=== PATIENT | female | born 1950 | race American Indian/Alaskan Native ===

== ENCOUNTER → 2017-01-08 | Outpatient (CLI) | payer OTHER, BC ==
--- NOTE | 2017-01-08 13:49 | DI ---
XR T-SPINE 3VW,01/08/2017 10:35 AM: Clinical History: Acute thoracic back pain. Previous Exam: None at this facility. Findings: 3 views of the thoracic spine are obtained, and demonstrate anatomic alignment without fractures. Rivera tebral body height is preserved. Intervertebral disc height is also preserved. The lungs are clear. Cardiomediastinum is unremarkable. Impression: Normal thoracic spine.
== END ==
LOC: MOB LAB 10:11
PROVIDERS: ATTEND Physician Assistant Medical
DX: N30.01 Acute cystitis with hematuria (principal); M54.2 Cervicalgia; M54.6 Pain in thoracic spine; R82.99 Other abnormal findings in urine
CPT/HCPCS: 72072; 87077; 87088; 87186

== ENCOUNTER → 2017-01-17 | Outpatient (CLI) | payer OTHER, BC ==
[2017-01-17 12:13] LABS: BASOPHILS # (AUTO) 0.04 10*3/UL; BASOPHILS % (AUTO) 0.3 % (0-1); EOSINOPHILS # (AUTO) 0.03 10*3/UL; EOSINOPHILS % (AUTO) 0.2 % (0-8); HEMATOCRIT 35.9 % (37.0-47.0); HEMOGLOBIN 11.7 g/dL (12.0-16.0); LYMPHOCYTES # (AUTO) 2.43 10*3/uL; MEAN CORPUSCULAR HGB CONC 32.6 g/dL (33-37); MEAN CORPUSCULAR VOLUME 88.9 FL (81-99); MEAN PLATELET VOLUME 8.1 FL (7.4-12.2); MONOCYTES # (AUTO) 0.97 10*3/UL (0.3-0.8); MONOCYTES % (AUTO) 7.6 % (5-15); NEUTROPHILS # (AUTO) 9.29 10*3/UL; NEUTROPHILS % (AUTO) 72.7 % (50-80); RED BLOOD COUNT 4.04 10^6/uL (4.20-5.40)
[2017-01-17 12:18] LABS: PLATELET MORPHOLOGY COMMENT NORMAL MORPHOLOGY (NORM); RBC MORPHOLOGY COMMENT NORMAL MORPHOLOGY (NORM); WBC MORPHOLOGY COMMENT NORMAL MORPHOLOGY (NORM)
[2017-01-17 12:20] LABS: BLOOD UREA NITROGEN 12 mg/dL (7-22); CALCIUM 9.6 mg/dL (8.7-10.7); EST GLOMERULAR FILTRATION > 60 (>60 ml/min/1.73m(2))
[2017-01-17 12:53] LABS: BILIRUBIN,URINE NEGATIVE (NEG); COLOR,URINE YELLOW; GLUCOSE, URINE (UA) NEGATIVE (NEG); NITRATE,URINE NEGATIVE (NEG); OCCULT BLOOD,URINE SMALL (NEG); PROTEIN,URINE TRACE mg/dl (NEG); UROBILINOGEN,URINE 0.2 mg/dL (0.2)
--- NOTE | 2017-01-17 13:10 | DI ---
US SOFT TISSUE HEAD/NECK,01/17/2017 12:01 PM: Clinical History: Right sided neck mass Previous Exam: None at this facility. Findings: Multiple grayscale and color Doppler sonographic images are obtained through the thyroid. The thyroid is diffusely heterogeneous. The right lobe of the thyroid is enlarged without a definitive mass. The right thyroid lobe in its entirety measured 4.8 x 2.3 x 2.6 cm. The left thyroid lobe measured 3.6 x 1.5 x 1.7 cm. There are no cystic masses. The thyroid isthmus me asured 4 mm. There are multiple lymph nodes identified which are nonpathologic by size criteria. Impression: Large thyroid mass involving the right lobe of the thyroid with diffuse heterogeneity. Recommend thyr oid biopsy for further evaluation.
[2017-01-17 13:42] LABS: CLARITY,URINE CLEAR (CLEAR)
[2017-01-17 13:44] LABS: SQUAMOUS EPITHELIAL CELL,UR RARE; URINE CASTS RARE; URINE SAMPLE TYPE CLEAN CATCH URINE; WBC,URINE 0-3
--- NOTE | 2017-01-17 14:06 | DI ---
CT SOFT TISSUE NECK W/LUIZ MIO,01/17/2017 12:01 PM: Clinical History: Painful mass within the right neck. Previous Exam: None at this facility. Findings: Multiple helically acquired CT images are obtained through the neck following intravenous demonstrati on of iodinated contrast. The palpable marker lies over the right thyroid gland. The right thyroid lobe is enlarged and heterog eneous. Physical examination revealed tenderness to palpation over this area. The thyroid gland measu res 4.0 x 2.5 cm. There are a few lymph nodes, but none of these are pathologic by size criteria. The parapharyngeal fa t is normal and symmetric. Skeletal structures are unremarkable except for some degenerative changes of the posterior articulati ng facets and the uncovertebral joints. There is postsurgical changes consistent with removal of the left submandibular gland. Visualized portions of the [place], vertebral arteries and carotid arteries are unremarkable . Other prevertebral soft tissues are unremarkable. Impression: 1. Enlarged and slightly heterogeneous right thyroid lobe without a definite mass nor cyst. 2. Mild degenerative changes of cervical spine. 3. Status post removal of a left submandibular gland.
[2017-01-17 18:24] LABS: FREE T4 (FREE THYROXINE) 5.48 ng/dL (0.93-1.71)
== END ==
LOC: MOB LAB 11:26
PROVIDERS: ATTEND Nurse Practitioner Family
DX: R59.1 Generalized enlarged lymph nodes (principal); R22.1 Localized swelling, mass and lump, neck; R30.0 Dysuria; R06.02 Shortness of breath; E06.1 Subacute thyroiditis; E04.9 Nontoxic goiter, unspecified; M47.812 Spondylosis without myelopathy or radiculopathy, cervical region; Z98.890 Other specified postprocedural states
CPT/HCPCS: 36415; 70492; 76536; 80048; 81001; 84439; 84443; 85025

== ENCOUNTER → 2017-01-24 | Outpatient (CLI) | payer OTHER, BC | LOC: MMPC 09:00 | PROVIDERS: ATTEND Nurse Practitioner Family | DX: E06.1 Subacute thyroiditis (principal) | CPT/HCPCS: 99213; G0463 ==

== ENCOUNTER → 2017-04-24 | Outpatient (CLI) | payer OTHER, BC ==
[2017-04-24 12:23] LABS: BASOPHILS # (AUTO) 0.14 10*3/UL; BASOPHILS % (AUTO) 1.6 % (0-1); BLOOD UREA NITROGEN 12 mg/dL (7-22); BUN/CREATININE RATIO 13.33 (6-20); CALCIUM 10.3 mg/dL (8.7-10.7); EOSINOPHILS % (AUTO) 2.3 % (0-8); EST GLOMERULAR FILTRATION > 60 (>60 ml/min/1.73m(2)); HEMATOCRIT 42.5 % (37.0-47.0); HEMOGLOBIN 14.4 g/dL (12.0-16.0); LYMPHOCYTES # (AUTO) 4.14 10*3/uL; MEAN CORPUSCULAR HEMOGLOBIN 30.4 PG (27-31); MEAN CORPUSCULAR HGB CONC 33.9 g/dL (33-37); MEAN CORPUSCULAR VOLUME 89.7 FL (81-99); MEAN PLATELET VOLUME 9.3 FL (7.4-12.2); MONOCYTES # (AUTO) 0.58 10*3/UL (0.3-0.8); MONOCYTES % (AUTO) 6.6 % (5-15); NEUTROPHILS # (AUTO) 3.72 10*3/UL; NEUTROPHILS % (AUTO) 42.3 % (50-80); RED BLOOD COUNT 4.74 10^6/uL (4.20-5.40); SERUM ALBUMIN 4.2 g/dL (3.5-4.8)
[2017-04-24 12:30] LABS: PLATELET MORPHOLOGY COMMENT NORMAL MORPHOLOGY (NORM); RBC MORPHOLOGY COMMENT NORMAL MORPHOLOGY (NORM); WBC MORPHOLOGY COMMENT NORMAL MORPHOLOGY (NORM)
[2017-04-24 12:38] LABS: CHOL/HDL RATIO 2.42 RATIO (0-4.0); LDL CHOLESTEROL,CALCULATED 97.4 mg/dL
== END ==
LOC: LAB 11:50
PROVIDERS: ATTEND Nurse Practitioner Family
DX: E78.5 Hyperlipidemia, unspecified (principal); E03.9 Hypothyroidism, unspecified
CPT/HCPCS: 36415; 80053; 80061; 84443; 85025